=== PATIENT | female | born 2005 | race African-American/Black ===

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

== ENCOUNTER 2025-02-12 08:44 | Inpatient (IN) | payer OTHER ==
[~2025-02-12] VITALS: Ht 157.5 cm; Wt 78.1 kg
[2025-02-12 09:07] LABS: COVID AG,FIA SOURCE NASAL SWAB
[2025-02-12] MEDS: SODIUM CHLORIDE 0.9% 2,300 ML IV ONE (09:27)
[2025-02-12] MEDS: ACETAMINOPHEN 1000 MG/ISO-OSM 100 ML IV ONE (09:30)
[2025-02-12] MEDS ORDERED: 0.9% SODIUM CHLORIDE 10 ML SYRINGE IVP PRN (09:30)
[2025-02-12 09:37] LABS: PLATELET COUNT (AUTO) 291 K/uL (150-450); RED BLOOD CELL COUNT(AUTO) 4.65 MIL/uL (4.00-5.20); RED CELL DISTRIBUTION WIDTH 15.3 % (11.5-14.5); WHITE BLOOD COUNT (AUTO) 5.6 K/uL (4.5-11.0)
[2025-02-12 09:51] LABS: RBC MORPHOLOGY COMMENT ABNORMAL RBC MORPH
[2025-02-12 09:54] LABS: BAND NEUTROPHILS % (MANUAL) 3 % (0-5); CALCIUM, TOTAL 8.3 mg/dL (8.8-10.5); CREATININE 0.78 mg/dL (0.60-1.30); EOSINOPHILS % (MANUAL) 1 % (1-6); GLOMERULAR FILTR. RATE CALC > 60 mL/min (>60); GLUCOSE,RANDOM 92 mg/dL (70-110); LYMPHOCYTES % (MANUAL) 6 % (22-44); MONOCYTES % (MANUAL) 3 % (2-9); SEGMENTED NEUTROPHILS % 87 % (40-70); SODIUM SERUM 137 mmol/L (136-145); UREA NITROGEN, BLOOD 5 mg/dL (7-18)
[2025-02-12 09:56] LABS: SARS-COV2 (COVID) ANTIGEN,FIA Negative (Negative)
[2025-02-12 09:57] LABS: INFLUENZA TYPE A NEGATIVE FOR TYPE A (NEGATIVE); INFLUENZA TYPE B NEGATIVE FOR TYPE B (NEGATIVE)
[2025-02-12 09:58] LABS: ASPARTATE AMINOTRANSFERASE 20 U/L (15-37); CREATINE KINASE, TOTAL ONLY 174 U/L (26-192); HCG,QUANTITATIVE < 1 mIU/mL (0-6); TOTAL PROTEIN, SERUM 7.1 g/dL (6.4-8.2)
[2025-02-12 10:08] LABS: LACTIC ACID 0.9 mmol/L (0.4-2.0)
[2025-02-12] MEDS: CefTRIAXone 1 GM/DEXTROSE 50 ML IV ONE (10:17)
[2025-02-12 10:22] LABS: TROPONIN I-HIGH SENSITIVITY 5 ng/L (<51)
[2025-02-12 11:50] LABS: APPEARANCE,URINE CLEAR (CLEAR); GLUCOSE, URINE (UA) NEGATIVE (NEGATIVE); LEUKOCYTE ESTERASE ,URINE NEGATIVE (NEGATIVE); NITRATE,URINE NEGATIVE (NEGATIVE); OCCULT BLOOD,URINE NEGATIVE (NEGATIVE); SPECIFIC GRAVITIY, URINE 1.026 (1.003-1.030)
[2025-02-12] MEDS ORDERED: MAGNESIUM HYDROXIDE SUSPENSION 30 ML UDCUP PO PRN (13:00)
[2025-02-12] MEDS ORDERED: ZOLPIDEM TARTRATE 5 MG TABLET PO PRN (13:00)
[2025-02-12] MEDS: SODIUM CHLORIDE 0.9% 1,000 ML IV ONE (13:03)
[2025-02-12] MEDS: ACYCLOVIR 600 MG in DEXTROSE 5%-WATER 100 ML IV SCH (16:08)
[2025-02-12] MEDS: VANCOMYCIN HCL 1.25 GM in DEXTROSE 5%-WATER 250 ML IV ONE (16:08)
[2025-02-12] MEDS ORDERED: MORPHINE SULFATE 2 MG/ML SYRINGE IVP ONE ×2 (17:00→17:45)
[2025-02-12] MEDS: MORPHINE SULFATE 2 MG/ML SYRINGE IVP ONE (17:12)
[2025-02-12] MEDS ORDERED: POVIDONE-IODINE 10% 15 ML SOLUTION UD ONE (17:22)
[2025-02-12 18:10] VITALS: BP 117/60; PULSE 105; RESP 16; TEMP 103; O2SAT 99
[2025-02-12 18:58] LABS: CSF TOTAL VOLUME 0.5 mL; CSF TUBE NUMBER 2
[2025-02-12 18:59] LABS: COLOR,CSF COLORLESS (COLORLESS)
[2025-02-12] MEDS: ACETAMINOPHEN 325 MG TABLET PO PRN (19:15)
[2025-02-12 19:38] LABS: APPEARANCE,CSF HAZY (CLEAR)
[2025-02-12 19:46] LABS: CSF 2ND TUBE NUMBER 3; LYMPHOCYTES1,CSF 3 %; MONOCYTES1,CSF 0 %; NEUTROPHILS1,CSF 97 %; RED BLOOD CELL1,CSF 915.0 CMM (0-0); WHITE BLOOD CELL1,CSF 480.0 CMM (0-5)
[2025-02-12 19:47] LABS: APPEARANCE2,CSF HAZY (CLEAR); COLOR2,CSF COLORLESS (COLORLESS); LYMPHOCYTES2,CSF 5 %; MONOCYTES2,CSF 0 %; NEUTROPHILS2,CSF 95 %; RED BLOOD CELL2,CSF 892.0 CMM (0-0); WHITE BLOOD CELL2,CSF 457.0 CMM (0-5)
[2025-02-12 21:02] VITALS: BP 110/58; PULSE 117; RESP 19; TEMP 103.1; O2SAT 100
[2025-02-12] MEDS ORDERED: SODIUM CHLORIDE 0.9% 500 ML IV ONE (22:52)
[2025-02-12] MEDS: CefTRIAXone SODIUM 2 GM in DEXTROSE 5%-WATER 50 ML IV SCH (23:00)
[2025-02-12 23:58] VITALS: BP 111/69; PULSE 105; RESP 19; TEMP 99.9; O2SAT 100
[2025-02-13] VITALS (8 sets, daily range): BP systolic 102–116; BP diastolic 57–74; PULSE 67–111; RESP 16–19; TEMP 98.2–103.1; O2SAT 98–100
[2025-02-13] MEDS: VANCOMYCIN HCL 1 GM/D5% WATER 200 ML IV SCH (01:22)
[2025-02-13 06:36] LABS: CALCIUM, TOTAL 8.1 mg/dL (8.8-10.5); CREATININE 0.58 mg/dL (0.60-1.30); GLOMERULAR FILTR. RATE CALC > 60 mL/min (>60); GLUCOSE,RANDOM 95 mg/dL (70-110); SODIUM SERUM 135 mmol/L (136-145); UREA NITROGEN, BLOOD 2 mg/dL (7-18)
[2025-02-13 07:34] LABS: PLATELET COUNT (AUTO) 260 K/uL (150-450); RED BLOOD CELL COUNT(AUTO) 4.30 MIL/uL (4.00-5.20); RED CELL DISTRIBUTION WIDTH 15.3 % (11.5-14.5); WHITE BLOOD COUNT (AUTO) 4.9 K/uL (4.5-11.0)
[2025-02-13] MEDS: FAMOTIDINE 20 MG TABLET PO SCH (07:47)
[2025-02-13] MEDS ORDERED: CefTRIAXone 1 GM/DEXTROSE 50 ML IV SCH (10:00)
[2025-02-13 10:53] LABS: RBC MORPHOLOGY COMMENT ABNORMAL RBC MORPH
[2025-02-13 12:33] LABS: INFLUENZA A-RTPCR,COMBO NEGATIVE (NEGATIVE); INFLUENZA B-RTPCR,COMBO NEGATIVE (NEGATIVE); RESPIRATORY SYNCYTIAL VRS-PCR NEGATIVE (NEGATIVE); SARS COVID19 RTPCR, COMBO NEGATIVE (NEGATIVE)
[2025-02-13] MEDS: DEXTROSE 5%-0.45% SODIUM CHL 1,000 ML IV SCH (13:11)
[2025-02-14 04:28] VITALS: BP 109/59; PULSE 72; RESP 17; TEMP 98.8; O2SAT 98
[2025-02-14 07:13] LABS: ASPARTATE AMINOTRANSFERASE 13 U/L (15-37); CALCIUM, TOTAL 8.8 mg/dL (8.8-10.5); CREATININE 0.61 mg/dL (0.60-1.30); GLOMERULAR FILTR. RATE CALC > 60 mL/min (>60); GLUCOSE,RANDOM 114 mg/dL (70-110); SODIUM SERUM 138 mmol/L (136-145); TOTAL PROTEIN, SERUM 6.6 g/dL (6.4-8.2); UREA NITROGEN, BLOOD 2 mg/dL (7-18)
[2025-02-14] MEDS: VANCOMYCIN HCL 1.25 GM in DEXTROSE 5%-WATER 250 ML IV SCH (08:33)
[2025-02-14 08:36] VITALS: BP 104/71; PULSE 70; RESP 18; TEMP 98.9; O2SAT 97
[2025-02-14 12:41] VITALS: BP 105/59; PULSE 80; RESP 18; TEMP 98.9; O2SAT 98
[2025-02-14 17:05] VITALS: BP 112/62; PULSE 112; RESP 14; TEMP 99; O2SAT 98
[2025-02-14] MEDS: OxyCODONE HCL/ACETAMINOPHEN 5-325 MG TABLET PO PRN (19:53)
[2025-02-14 20:25] VITALS: BP 105/58; PULSE 106; RESP 17; TEMP 99.9; O2SAT 98
[2025-02-14] MEDS: ONDANSETRON HCL 4 MG/2 ML VIAL IVP PRN (22:49)
[2025-02-15] VITALS (7 sets, daily range): BP systolic 100–115; BP diastolic 56–80; PULSE 63–80; RESP 17–18; TEMP 97.7–99.9; O2SAT 96–100
[2025-02-15] MEDS ORDERED: SODIUM CHLORIDE 0.9% 250 ML IV ONE ×2 (08:53→12:40)
[2025-02-15 09:06] LABS: CALCIUM, TOTAL 8.2 mg/dL (8.8-10.5); CREATININE 0.60 mg/dL (0.60-1.30); GLOMERULAR FILTR. RATE CALC > 60 mL/min (>60); GLUCOSE,RANDOM 108 mg/dL (70-110); SODIUM SERUM 136 mmol/L (136-145); UREA NITROGEN, BLOOD 1 mg/dL (7-18)
[2025-02-15] MEDS: POTASSIUM CHLORIDE 20 MEQ ER TABLET PO ONE (12:46)
[2025-02-16 05:21] VITALS: BP 100/66; PULSE 61; RESP 18; TEMP 98.2; O2SAT 100
[2025-02-16 07:31] LABS: PLATELET COUNT (AUTO) 316 K/uL (150-450); RED BLOOD CELL COUNT(AUTO) 4.49 MIL/uL (4.00-5.20); RED CELL DISTRIBUTION WIDTH 15.2 % (11.5-14.5); WHITE BLOOD COUNT (AUTO) 2.2 K/uL (4.5-11.0)
[2025-02-16 07:36] VITALS: BP 94/62; PULSE 63; RESP 20; TEMP 97.7; O2SAT 98
[2025-02-16 07:50] LABS: CALCIUM, TOTAL 8.5 mg/dL (8.8-10.5); CREATININE 0.52 mg/dL (0.60-1.30); GLOMERULAR FILTR. RATE CALC > 60 mL/min (>60); GLUCOSE,RANDOM 88 mg/dL (70-110); SODIUM SERUM 138 mmol/L (136-145); UREA NITROGEN, BLOOD 2 mg/dL (7-18)
[2025-02-16 15:05] VITALS: BP 103/66; PULSE 67; RESP 20; TEMP 98.2; O2SAT 99
[2025-02-16] MEDS ORDERED: POTASSIUM CHLORIDE 20 MEQ ER TABLET PO ONE (16:30)
[2025-02-16] MEDS: POTASSIUM CHLORIDE 10% 40 MEQ/30 ML LIQUID UDCUP PO ONE (17:20)
[2025-02-16 20:00] VITALS: BP 106/69; PULSE 82; RESP 18; TEMP 98.4; O2SAT 99
[2025-02-17 04:00] VITALS: BP 97/62; PULSE 58; RESP 18; TEMP 98.6; O2SAT 97
[2025-02-17 08:00] VITALS: BP 105/53; PULSE 63; RESP 19; TEMP 98.8; O2SAT 97
[2025-02-17 08:19] LABS: PLATELET COUNT (AUTO) 363 K/uL (150-450); RED BLOOD CELL COUNT(AUTO) 4.72 MIL/uL (4.00-5.20); RED CELL DISTRIBUTION WIDTH 15.3 % (11.5-14.5); WHITE BLOOD COUNT (AUTO) 2.5 K/uL (4.5-11.0)
[2025-02-17 08:27] LABS: CALCIUM, TOTAL 8.8 mg/dL (8.8-10.5); CREATININE 0.64 mg/dL (0.60-1.30); GLOMERULAR FILTR. RATE CALC > 60 mL/min (>60); GLUCOSE,RANDOM 90 mg/dL (70-110); SODIUM SERUM 138 mmol/L (136-145); UREA NITROGEN, BLOOD 4 mg/dL (7-18)
[2025-02-17] MEDS ORDERED: ACYC500I IV (15:57)
[2025-02-17] MEDS ORDERED: CEFT2VIA60 IV (15:59)
[2025-02-17 16:00] VITALS: BP 102/67; PULSE 66; RESP 20; TEMP 98.2; O2SAT 100
[2025-02-17] MEDS ORDERED: VANC125C19 PO (16:06)
[2025-02-17] MEDS ORDERED: VANC250C20 PO (16:07)
[2025-02-17] MEDS ORDERED: VANC1.2524 IV (16:08)
[2025-02-17] MEDS ORDERED: FAMO20 PO (16:10)
[2025-02-17] MEDS ORDERED: ACET650S39 PO (16:12)
[2025-02-17] MEDS ORDERED: MAGN-169 PO (16:12)
[2025-02-18 13:07] LABS: WEST NILE VIRUS IGG Negative (Negative); WEST NILE VIRUS IGM Negative (Negative)
== END 2025-02-17 18:13 | DRG 720 ==
LOC: EMS 08:44 → EDH 12:50 → 5N 18:30 → 4E 02-15 17:30
PROVIDERS: ADMIT Internal Medicine; ATTEND Internal Medicine
PROC: 05HC33Z Insertion of Infusion Device into Left Basilic Vein, Percutaneous Approach (ICD-10-PCS; principal; 2025-02-14)
PROC: B54NZZA Ultrasonography of Left Upper Extremity Veins, Guidance (ICD-10-PCS; 2025-02-14)
DX: A41.9 Sepsis, unspecified organism (principal); G03.9 Meningitis, unspecified; D64.9 Anemia, unspecified; Z20.822 Contact with and (suspected) exposure to COVID-19
CPT/HCPCS: 36245; 36569; 62270; 70450; 71045; 76937; 80048; 80053; 80076; 80202; 81003; 82550; 83605; 83735; 83880; 84132; 84145; 84484; 84702; 85025; 85610; 86308; 86788; 86789; 87040; 87637; 87804; 89051; 93005; 93306; 96361; 96365; 96366; 96367; 96368; 96375; 99291; G0378; J0131; J0133; J0696; J2270; J2405; J3373; J7040; J7050; J7060; 36415-L1; 36415-TC